=== PATIENT | female | born 1950 | race Caucasian/White ===

== ENCOUNTER 2017-12-11 09:35 | Outpatient (CLI) | payer MEDICARE, OTHER ==
--- NOTE | 2017-12-12 17:20 | Mammography Report ---
DIGITAL SCREENING MAMMOGRAM: 12/11/2017 CLINICAL INDICATION: A 67-year-old for screening. COMPARISON: 09/2015, 12/2013, 09/2012, 09/2010. TECHNIQUE: Routine CC and MLO projections were obtained of the breasts. FINDINGS: Scattered fibroglandular tissue is present within the breasts. There are no dominant masses, suspicious microcalcifications, or secondary signs of malignancy. In comparison to the previous studies, there are no significant changes. ASSESSMENT: NO MAMMOGRAPHIC EVIDENCE OF MALIGNANCY. NO SIGNIFICANT INTERVAL CHANGES. RECOMMENDATION: Screening mammography is recommended annually. BIRADS category 1 - negative. STANDARD QUALIFYING STATEMENTS: 1. This examination was reviewed with the aid of Computed-Aided Detection (CAD). 2. A negative or benign imaging report should not delay biopsy if clinically suspicious findings are present. Consider surgical consultation if warranted. More than 5% of cancers are not identified by imaging. 3. Dense breasts may obscure an underlying neoplasm. TD: 12/12/2017 15:34
== END 2017-12-11 09:36 | disposition home or self-care (01) ==
LOC: DI 09:35
PROVIDERS: ATTEND Family Medicine
DX: Z12.31 Encounter for screening mammogram for malignant neoplasm of breast (principal)
CPT/HCPCS: 77067

== ENCOUNTER 2018-04-25 14:19 | Outpatient (CLI) | payer MEDICARE, OTHER | END 2018-04-25 14:20 | disposition home or self-care (01) | LOC: RT 14:19 | PROVIDERS: ATTEND Family Medicine | DX: R07.9 Chest pain, unspecified (principal) | CPT/HCPCS: 93005 ==

== ENCOUNTER 2019-06-30 07:48 | Outpatient (CLI) | payer MEDICARE, OTHER ==
[2019-06-30] MEDS ORDERED: IOVERSOL 320 50 ML VIAL ONE (07:53)
[2019-06-30] MEDS ORDERED: IOVERSOL 320 100 ML VIAL IVP ONE ×2 (07:53→13:00)
[2019-06-30] MEDS ORDERED: IOVERSOL 320 50 ML VIAL PO ONE (13:00)
--- NOTE | 2019-07-01 09:07 | CT Report ---
Reason: UNSPECIFIED ABDOMINAL PAIN Procedure Date: 06/30/2019 Accession Number: [id number] / [id number] Procedure: CT - Abdomen/Pelvis W CPT Code: Final Report FULL RESULT: EXAM: CT ABDOMEN AND PELVIS EXAM DATE: 06/30/2019 09:33 AM. CLINICAL HISTORY: Progressive abdominal pain COMPARISONS: None. TECHNIQUE: Routine helical CT imaging was performed through the abdomen and pelvis. IV contrast: OPTI 320 100ML. Enteric contrast: No. Reconstructions: Coronal and sagittal. In accordance with CT protocol optimization, one or more of the following dose reduction techniques were utilized for this exam: automated exposure control, adjustment of mA and/or KV based on patient size, or use of iterative reconstructive technique. FINDINGS: Lung Bases: Unremarkable. Liver: Hepatic few scattered hypoattenuating lesions, the largest in the left lobe measuring 1.1 cm are too small to definitively characterize, possibly small cysts or hemangiomas. No enhancing liver masses. Hepatic and portal veins are patent. Gallbladder/Bile Ducts: Unremarkable. Spleen: Normal. Pancreas: Normal. Adrenal Glands: Normal. Kidneys: No solid renal masses or hydronephrosis. Exophytic 2 cm left upper pole renal lesion is most consistent with a simple cyst. Few additional small sub-centimeter hypoattenuating renal lesions are too small to characterize, possibly additional cysts. Peritoneal Cavity/Bowel: Unremarkable stomach. Normal caliber small bowel loops without signs of wall thickening or hyperemia. No pathologically enlarged intraperitoneal or retroperitoneal lymph nodes. Colonic diverticula without inflammation. Normal appendix. No pneumoperitoneum or ascites. No fluid collections. Pelvic Organs: A large heterogeneously enhancing mass is centered in the right upper pelvic sidewall measuring approximately 10.1 x 10.2 cm. A distinct separate right ovary is not seen. Left ovary appears unremarkable. Given location, and ovarian primary malignancy is a consideration. Otherwise, a pelvic sarcoma is another possible differential consideration. This lesion abuts a loop of small bowel in the right lower abdomen. No enlarged pelvic or inguinal lymph nodes are seen. No pelvic ascites. Mass-effect is noted on the urinary bladder. The uterus is surgically absent. Vasculature: No aneurysms or other significant abnormality. Bones: Osteopenia. Age-indeterminate superior endplate compression deformity seen in L1. No acute fracture lines. No focal suspicious osseous lesions. Other: None. IMPRESSION: 1. Large heterogeneous enhancing right pelvic sidewall mass measuring up to 10.2 cm is suspicious for malignancy. Given location, ovarian neoplasm is a primary consideration. A pelvic soft tissue sarcoma is an additional consideration. 2. Few indeterminate hypoattenuating liver lesions are too small to characterize, possibly benign cysts or hemangiomas. Liver MRI could be obtained for additional lesion characterization as indicated. 3. Otherwise, no evidence for metastatic disease in the abdomen or pelvis. No lymphadenopathy. 4. Colonic diverticulosis, notable in the sigmoid colon, without evidence for acute diverticulitis. RADIA
== END 2019-06-30 07:49 | disposition home or self-care (01) ==
LOC: DI 07:48
PROVIDERS: ATTEND Nurse Practitioner Family
DX: R19.09 Other intra-abdominal and pelvic swelling, mass and lump (principal); K76.9 Liver disease, unspecified; K57.30 Diverticulosis of large intestine without perforation or abscess without bleeding
CPT/HCPCS: 74177; Q9967

== ENCOUNTER 2019-07-31 12:40 | Outpatient (CLI) | payer MEDICARE, OTHER ==
--- NOTE | 2019-07-31 14:38 | Mammography Report ---
Reason: MASTODYNIA Procedure Date: 07/31/2019 Accession Number: [id number] / [id number] Procedure: TAHIRA - Diagnostic Dig Bilat CPT Code: Final Report FULL RESULT: EXAM: Diagnostic Dig Bilat DATE: 07/31/2019 1:36 PM CLINICAL HISTORY: Diagnostic examination. Mastodynia. 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 TECHNIQUE: (B) - Bilateral CC and MLO views were obtained. Right laterally exaggerated CC views obtained. COMPARISON: 12/11/2017 through 10/10/2010. PARENCHYMAL PATTERN: (A) - The breast(s) demonstrate(s) scattered fibroglandular densities. FINDINGS: There has been interval increase in size of previously seen well circumscribed isodense nodules bilaterally. In the right breast 10.5 cm from the nipple 9:00 position, up to 1 cm size as well as in the left breast laterally, 3:00 position 8.8 cm from the nipple, isodense gently lobulated and up to 0.9 cm in size. Focused left breast ultrasound is performed which demonstrates a gently lobulated well demarcated wider than tall hypoechoic nodule which measures 0.7 x 0.3 x 0.6 cm which corresponds in size and location to the mammographic finding. Focused right breast ultrasound demonstrates a gently lobulated 0.6 x 0.2 x 0.7 cm hypoechoic nodule with well demarcated borders which is wider than tall at the 9:00 position 10 cm from the nipple which corresponds in size and appearance and location to the mammographic findings. Both nodules are probably benign. There are no suspicious masses, calcifications, or areas of distortion. IMPRESSION: Probably Benign. BI-RADS category 3. RECOMMENDATION: (6MOS) - Recommend 6 month follow-up exam. Bilateral focused breast ultrasound. BI-RADS CATEGORY: (3) - Probably Benign. STANDARD QUALIFYING STATEMENTS: 1. This examination was not reviewed with the aid of Computer-Aided Detection (CAD). 2. A negative or benign imaging report should not preclude biopsy if clinically suspicious findings are present. 3. Dense breasts may obscure an underlying neoplasm. 4. This examination was reviewed with the aid of 3D breast imaging (tomosynthesis).
== END 2019-07-31 12:41 | disposition home or self-care (01) ==
LOC: DI 12:40
PROVIDERS: ATTEND Nurse Practitioner Family
DX: N64.4 Mastodynia (principal)
CPT/HCPCS: 76642; 77066

== ENCOUNTER 2020-01-06 09:26 | Outpatient (CLI) | payer MEDICARE, OTHER | END 2020-01-06 23:59 | disposition home or self-care (01) | LOC: LAB 09:26 | PROVIDERS: ATTEND Internal Medicine | DX: R03.0 Elevated blood-pressure reading, without diagnosis of hypertension (principal) | CPT/HCPCS: 36415; 82565 ==

== ENCOUNTER 2020-01-07 10:44 | Outpatient (CLI) | payer MEDICARE, OTHER ==
[2020-01-06 10:12] LABS: CREATININE 0.6 mg/dL (0.4-1.0)
[2020-01-07] MEDS ORDERED: IOVERSOL 320 100 ML VIAL IVP ONE ×2 (10:54→13:19)
[2020-01-07] MEDS ORDERED: IOVERSOL 320 50 ML VIAL ONE (10:54)
[2020-01-07] MEDS ORDERED: IOVERSOL 320 50 ML VIAL PO ONE (13:19)
--- NOTE | 2020-01-07 13:59 | CT Report ---
PROCEDURE: Abdomen/Pelvis W INDICATIONS: MALIGNANT NEOPLASM OF UNSPECIFIED OVARY CONTRAST: IV CONTRAST: Optiray 320 ml: 100 PO CONTRAST: Optiray 320 ml50 TECHNIQUE: After the administration of oral and intravenous contrast, 5 mm thick sections acquired from the diap hragms to the symphysis. 5 mm thick coronal and sagittal reformats were acquired. For radiation dos e reduction, the following was used: automated exposure control, adjustment of mA and/or kV accordin g to patient size. COMPARISON: None. FINDINGS: Image quality: Excellent. ABDOMEN: Lung bases: Lung bases are clear. Heart size is normal. Solid organs: Liver and spleen are normal in size and enhancement. A 1.5 cm hepatic cyst is present within the inferior left hepatic lobe, unchanged from the study dated 06/30/2019. Gallbladder is unr emarkable Biliary system is non dilated. Pancreas enhances normally. No adrenal nodules. Kidneys demonstrate normal size and enhancement, without hydronephrosis. Peritoneum and bowel: Bowel loops demonstrate normal wall thickness and caliber. The appendix is th in-walled and gas-filled. There are extensive colonic diverticular outpouchings. No mucosal thickenin g or pericolonic fat stranding to suggest acute diverticulitis. There is trace low-density free pelvi c fluid. Nodes and vessels: No retroperitoneal or mesenteric adenopathy by size criteria. Aorta and inferior vena cava are normal in size. Scattered atheromatous calcifications are present throughout the abdo isaac aorta. Miscellaneous: No ventral hernias. PELVIS: Genitourinary: Bladder wall thickness is normal. Uterus is likely surgically absent. The large hete rogeneously enhancing mass within the right hemipelvis visualized on the comparison CT dated 06/30/20 19 is no longer present. No findings to suggest tumor recurrence. Miscellaneous: No inguinal hernias or adenopathy. Bones: No suspicious bony lesions. No new vertebral body compression fractures. IMPRESSION: 1. Status post surgical excision of the heterogeneously enhancing right pelvic mass. No findings to s uggest tumor recurrence or new metastasis. 2. No acute intra-abdominal findings. Normal appendix. 3. Aortic atherosclerosis. 4. Diverticulosis. No acute diverticulitis. Reviewed by: Elyssa Hendrix MD on 01/07/2020 1:57 PM PDT Approved by: Elyssa Hendrix MD on 01/07/2020 1:57 PM PDT Station ID: [id number]
--- NOTE | 2020-01-07 14:03 | CT Report ---
PROCEDURE: CHEST W INDICATIONS: MALIGNANT NEOPLASM OF UNSPECIFIED OVARY CONTRAST: IV CONTRAST: Optiray 320 ml: 100 PO CONTRAST: Optiray 320 ml50 TECHNIQUE: After the administration of intravenous contrast, 5 mm thick sections acquired from the pulmonary api chyna to the posterior costophrenic angles. 7 mm thick coronal MIP reformats were acquired. For radia tion dose reduction, the following was used: automated exposure control, adjustment of mA and/or kV according to patient size. COMPARISON: None. FINDINGS: Image quality: Excellent. Lungs and pleura: No acute air space opacities. No pleural effusions or pneumothorax. Central and peripheral airways are patent and normal in caliber. Mediastinum: Heart size is normal. No pericardial effusion. No mediastinal or hilar adenopathy by size criteria. Thoracic aorta and central pulmonary arteries are normal in size. Trace atheromatous calcifications are present at the thoracic aortic arch. Esophagus is normal in caliber. No hiatal he rnia. Bones and chest wall: No suspicious bony lesions. No vertebral body compression fractures. No axil isadora or supraclavicular adenopathy by size criteria. 2 subcentimeter low-density thyroid nodules are present within the right thyroid lobe. The left thyroid lobe is unremarkable. Abdomen: Visualized upper abdominal solid organs appear normal. Upper abdominal bowel loops are nor mal in caliber. IMPRESSION: 1. No acute cardiopulmonary findings. 2. No findings to suggest thoracic metastasis. 3. Subcentimeter low-density thyroid nodules. If further characterization is warranted, nonemergent t hyroid ultrasound could be used. Reviewed by: Elyssa Hendrix MD on 01/07/2020 2:01 PM PDT Approved by: Elyssa Hendrix MD on 01/07/2020 2:01 PM PDT Station ID: [id number]
== END 2020-01-07 10:45 | disposition home or self-care (01) ==
LOC: DI 10:44
PROVIDERS: ATTEND Internal Medicine
DX: Z08 Encounter for follow-up examination after completed treatment for malignant neoplasm (principal); Z85.43 Personal history of malignant neoplasm of ovary
CPT/HCPCS: 71260; 74177; Q9967; 36415; 82565

== ENCOUNTER 2020-04-01 12:46 | Outpatient (CLI) | payer MEDICARE, OTHER ==
--- NOTE | 2020-04-07 13:41 | Ultrasound Report ---
LIMITED ULTRASOUND OF LEFT BREAST: 04/01/2020 CLINICAL: Patient returns for a 6 month follow up of the left breast. Comparison is made to exams dated: 07/31/2019 ultrasound and 07/31/2019 mammogram - [facility]. Color flow ultrasound of the left breast 3 o'clock region was performed. Finch scale images of the r eal-time examination were reviewed. There is a 0.5 cm x 0.4 cm x 0.6 cm oval mass in the left breast at 4 o'clock anterior depth 6 cm fro m the nipple. This oval mass is hypoechoic with internal echoes. This abnormality is decreased in s ize. Color flow imaging demonstrates that there is no vascularity present. IMPRESSION: PROBABLY BENIGN The 0.6 cm oval mass in the left breast has a differential diagnosis of a complicated cyst or a fibro adenoma and is probably benign. A follow-up left ultrasound in 6 months is recommended to demonstrate stability. Future imaging is r ecommended as follows: 09/28/2020 screening mammogram. Findings and recommendations were conveyed to the patient at time of exam. This exam was interpreted at Station ID: [id number]. Electronically Signed By: Jocelynn wallace/:04/01/2020 14:12:22 Ultrasound BI-RADS: 3 Probably benign BI-RADS CATEGORY: (3) - 3 Ultrasound [id number] 6 month follow-up LATERALITY: (L)
--- NOTE | 2020-04-07 13:41 | Ultrasound Report ---
LIMITED ULTRASOUND OF RIGHT BREAST: 04/01/2020 CLINICAL: Patient returns for a 6 month follow up of the right breast. Comparison is made to exams dated: 07/31/2019 ultrasound and 07/31/2019 mammogram - [facility]. Color flow ultrasound of the right breast 10 o'clock region was performed. Finch scale images of the real-time examination were reviewed. There is a benign 0.4 cm x 0.2 cm x 0.4 cm cyst in the right breast at 9 o'clock posterior depth 9 cm from the nipple. This cyst is anechoic. This abnormality is decreased in size and internal echotex ture. Color flow imaging demonstrates that there is no vascularity present. IMPRESSION: BENIGN There is no sonographic evidence of malignancy. The 0.4 cm x 0.2 cm x 0.4 cm cyst in the right breast is benign. Return to annual mammogram screening schedule is recommended. Findings and recommendations were conveyed to the patient at time of exam. This exam was interpreted at Station ID: [id number]. Electronically Signed By: Jocelynn wallace/:04/01/2020 14:08:43 Ultrasound BI-RADS: 2 Benign BI-RADS CATEGORY: (2) - 2 RECOMMENDATION: (ANNUAL) - Recommend routine annual screening mammography. [id number] return to screening LATERALITY: (B)
== END 2020-04-01 12:47 | disposition home or self-care (01) ==
LOC: DI 12:46
PROVIDERS: ATTEND Internal Medicine
DX: R92.8 Other abnormal and inconclusive findings on diagnostic imaging of breast (principal); N60.01 Solitary cyst of right breast
CPT/HCPCS: 76642

== ENCOUNTER 2020-04-06 07:04 | Day surgery (SDC) | payer MEDICARE, OTHER ==
[2020-04-06] MEDS ORDERED: LACTATED RINGERS 1,000 ML IV ONE ×2 (07:34→09:44)
[2020-04-06] MEDS ORDERED: MIDAZOLAM 2 MG/2 ML VIAL IVP ONE (08:59)
[2020-04-06] MEDS ORDERED: ONDANSETRON 4 MG/2 ML VIAL IVP ONE (08:59)
[2020-04-06] MEDS ORDERED: fentaNYL 250 MCG/5 ML VIAL IVP ONE (08:59)
[2020-04-06 10:03] VITALS: BP 127/67
== END 2020-04-06 07:05 | disposition home or self-care (01) ==
LOC: SDS 07:04
PROVIDERS: ATTEND Surgery
PROC: 0DBK8ZZ Excision of Ascending Colon, Via Natural or Artificial Opening Endoscopic (ICD-10-PCS; principal; 2020-04-06 08:15)
DX: Z12.11 Encounter for screening for malignant neoplasm of colon (principal); D12.2 Benign neoplasm of ascending colon; K62.1 Rectal polyp; K62.89 Other specified diseases of anus and rectum; K57.30 Diverticulosis of large intestine without perforation or abscess without bleeding; E78.5 Hyperlipidemia, unspecified; Z87.11 Personal history of peptic ulcer disease; Z87.891 Personal history of nicotine dependence
CPT/HCPCS: 45380; J3010; J7120

== ENCOUNTER 2020-10-08 13:06 | Outpatient (CLI) | payer MEDICARE, OTHER ==
--- NOTE | 2020-10-08 13:52 | XRAY Report ---
PROCEDURE: Lumbar Spine Complete INDICATIONS: LUMBAR RADICULOPATHY TECHNIQUE: 5 views of the lumbar spine were acquired, including bilateral oblique views. COMPARISON: Correlation is made with prior abdomen pelvis CT, 01/07/2020 FINDINGS: Bones: 5 [id number] vertebrae are present. There is a chronic appearing anterior wedge deformi ty of L1, with 20-30% loss of height anteriorly. No acute appearing vertebral body compression fractu res. No suspicious bony lesions. There is minimal dextroconvex sclerotic curvature seen. Mild grade 1 anterolisthesis is seen at the L 4-L5 level. There is moderate to severe disc space narrowing at L4-L5, with relatively well preserved disc spaces elsewhere. Facet arthropathy is seen, which is most prominent inferiorly. Soft tissues: Overlying bowel gas pattern is normal. No suspicious soft tissue calcifications. Pos toperative clips can be seen on the lateral images. IMPRESSION: Focal L4-L5 degenerative change. Remote L1 anterior wedge deformity. Reviewed by: Noman Hill MD on 10/08/2020 12:50 PM WILLIAM Approved by: Noman Hill MD on 10/08/2020 12:50 PM WILLIAM Station ID: [id number]
--- NOTE | 2020-10-08 13:54 | Ultrasound Report ---
PROCEDURE: Ext Limited Non Vascular INDICATIONS: PAIN IN LT KNEE POSS BAKERS CYST TECHNIQUE: Real-time scanning was performed of the left knee, with image documentation. COMPARISON: None. FINDINGS: Scanning was performed within the left popliteal fossa. No fluid collections can be seen. Scanning was performed at the areas of clinical concern. Along the lateral aspect of the knee, there is a fluid collection seen that measures 16 x 10 x 10 mm. An additional fluid collection can be seen anteriorly measuring 2.3 x 0.4 x 1.3 cm. No abnormal vascularity can be seen of the spinal collection s. IMPRESSION: 2 fluid collections are seen involving the left knee, yet without a Casas's cyst identified. Reviewed by: Noman Hill MD on 10/08/2020 12:53 PM WILLIAM Approved by: Noman Hill MD on 10/08/2020 12:53 PM WILLIAM Station ID: [id number]
== END 2020-10-08 13:07 | disposition home or self-care (01) ==
LOC: DI 13:06
PROVIDERS: ATTEND Family Medicine
DX: M47.26 Other spondylosis with radiculopathy, lumbar region (principal); M25.562 Pain in left knee; M25.462 Effusion, left knee

== ENCOUNTER 2020-11-24 08:33 | Outpatient (CLI) | payer MEDICARE, OTHER ==
--- NOTE | 2020-11-24 15:07 | DEXA Report ---
PROCEDURE: Dexa Spine and/or Hip INDICATIONS: DISORDER OF THE BONE TECHNIQUE: Dual energy x-ray absorptiometry (DXA) was performed on a NUVETA System. Regions measur ed are the AP Spine, femoral neck, and if needed forearm. COMPARISON: None. FINDINGS: Lumbar Spine: Bone Mineral Density 1.020 g/cm/cm,T score -1.3, minimal osteopenia Left Hip: Bone Mineral Density 0.895 g/cm/cm,T score -0.9, normal Left Femoral Neck: Bone Mineral Density 0.919 g/cm/cm, T score -0.9, normal (T score greater or equal to -1.0: NORMAL) (T score from -1.1 to -2.4: OSTEOPENIA) (T score less than or equal to -2.5 to: OSTEOPOROSIS) Impression: Normal bone mineral density. Patients with diagnosis of osteoporosis or osteopenia should have regular bone mineral density assess ment. For those eligible for Medicare, routine testing is allowed once every 2 years. Testing frequ ency can be increased for patients who have rapidly progressing disease or for those who are receivin g medical therapy to restore bone mass. Reviewed by: Eli Seymour MD on 11/24/2020 3:06 PM PDT Approved by: Eli Seymour MD on 11/24/2020 3:06 PM PDT Station ID: [id number]
== END 2020-11-24 08:34 | disposition home or self-care (01) ==
LOC: DI 08:33
PROVIDERS: ATTEND Internal Medicine
DX: M85.88 Other specified disorders of bone density and structure, other site (principal)

== ENCOUNTER 2021-04-03 10:34 | Outpatient (CLI) | payer MEDICARE, OTHER ==
[2021-04-03 11:00] LABS: BASOPHILS % (AUTO) 0.8 %; EOSINOPHILS # (AUTO) 0.2 10^3/uL (0.0-0.7); EOSINOPHILS % (AUTO) 3.2 %; HCT - HEMATOCRIT 41.9 % (37.0-47.0); LYMPHOCYTES # (AUTO) 1.4 10^3/uL (1.5-3.5); LYMPHOCYTES % (AUTO) 28.2 %; MEAN CORPUSCULAR HGB CONC 33.4 g/dL (32.0-36.0); MEAN CORPUSCULAR VOLUME 89.9 fL (81.0-99.0); MEAN PLATELET VOLUME 10.5 fL (7.9-10.8); MONOCYTES # (AUTO) 0.3 10^3/uL (0.0-1.0); MONOCYTES % (AUTO) 6.2 %; NEUTROPHILS # (AUTO) 3.1 10^3/uL (1.5-6.6); NEUTROPHILS % (AUTO) 61.2 %; PLT - PLATELET COUNT 223 10^3/uL (130-450); RED BLOOD COUNT 4.66 10^6/uL (4.20-5.40); RED CELL DISTRIBUTION WIDTH 12.7 % (12.0-15.0)
[2021-04-03 11:26] LABS: % IRON SATURATION 20 % (20-50); ALBUMIN 4.4 g/dL (3.2-5.5); ALBUMIN/GLOBULIN RATIO 1.6 (1.0-2.2); ALKALINE PHOSPHATASE 64 IU/L (42-121); ALT ALANINE AMINOTRANSFERASE 17 IU/L (10-60); AST ASPARTATE AMINOTRANSFERASE 18 IU/L (10-42); BILIRUBIN,TOTAL 0.7 mg/dL (0.2-1.0); BUN - BLOOD UREA NITROGEN 15 mg/dL (6-20); CALCIUM 9.1 mg/dL (8.5-10.3); CARBON DIOXIDE - CO2 25 mmol/L (21-32); CHLORIDE 103 mmol/L (101-111); CHOL/HDL RATIO 5.2 (<4.4); CHOLESTEROL 249 mg/dL; CREATININE 0.6 mg/dL (0.4-1.0); GFR - MDRD 99 (>89); GLUCOSE 96 mg/dL (70-100); HDL CHOLESTEROL 48 mg/dL; IRON 83 ug/dL (28-170); LDL CHOLESTEROL,CALCULATED 184 mg/dL; LDL/HDL RATIO 3.8 (<4.4); POTASSIUM 3.9 mmol/L (3.5-5.0); SODIUM 137 mmol/L (135-145); TOTAL IRON BINDING CAPACITY 410 ug/dL (250-450); TOTAL PROTEIN 7.2 g/dL (6.7-8.2); TRANSFERRIN 293 mg/dL (192-382); TRIGLYCERIDES 83 mg/dL; VLDL CHOLESTEROL 17 mg/dL
[2021-04-03 11:42] LABS: FERRITIN 37.9 ng/mL (11.0-306.8)
[2021-04-03 11:46] LABS: FOLATE 10.41 ng/mL ({null, 5.90 - >24.8})
== END 2021-04-03 10:35 | disposition home or self-care (01) ==
LOC: LAB 10:34
PROVIDERS: ATTEND Physician Assistant
DX: C56.9 Malignant neoplasm of unspecified ovary (principal); E78.5 Hyperlipidemia, unspecified; D64.9 Anemia, unspecified
CPT/HCPCS: 36415; 80053; 80061; 81599; 82378; 82607; 82728; 82746; 83540; 83721; 84466; 85025; 86304; 86305

== ENCOUNTER 2021-04-07 12:58 | Outpatient (CLI) | payer MEDICARE, OTHER | END 2021-04-07 12:59 | disposition home or self-care (01) | LOC: LAB 12:58 | PROVIDERS: ATTEND Physician Assistant Medical | DX: C56.9 Malignant neoplasm of unspecified ovary (principal) | CPT/HCPCS: 36415; 81599; 82378; 86304; 86305 ==

== ENCOUNTER 2021-04-14 13:03 | Outpatient (CLI) | payer MEDICARE, OTHER ==
--- NOTE | 2021-04-24 11:40 | Mammography Report ---
BILATERAL DIGITAL SCREENING MAMMOGRAM 3D/2D: 04/14/2021 CLINICAL: Routine screening. Comparison is made to exams dated: 04/01/2020 ultrasound, 04/01/2020 ultrasound, 07/31/2019 ultrasound, 07/31/2019 mammogram, 12/11/2017 mammogram, and 04/14/2021 ultrasound - [facility]. M ammogram There are scattered fibroglandular elements in both breasts. There is a benign cyst in the right breast which is stable. Additionally, there are benign calcifica tions in the right breast. There also is a mass in the left breast 3:00 posterior depth which is les s conspicuous. No significant masses, calcifications, or other findings are seen in either breast. There has been no significant interval change. IMPRESSION: BENIGN Left breast mass is less conspicuous. This resembles a fibroadenoma or cyst. Please see same day left breast US for final BI-RADS assessment. Bilateral mammogram is recommended in 12 months. This exam was interpreted at Station ID: [id number]. NOTE: For mammograms, a report in lay terms will be sent to the patient. Approximately 15% of breast malignancies will not be visualized mammographically. In the management of a palpable breast mass, a negative mammogram must not discourage biopsy of a clinically suspicious lesion. Electronically Signed By: Chaparro Campos M.D. slc/:04/24/2021 10:57:31 ACR BI-RADS Category 2: Benign Finding(s) 3342F PARENCHYMAL PATTERN: (A) - The breast(s) demonstrate(s) scattered fibroglandular densities. BI-RADS CATEGORY: (2) - 2 RECOMMENDATION: (ANNUAL) - Recommend routine annual screening mammography. [id number] 1 year screening LATERALITY: (B)
== END 2021-04-14 13:04 | disposition home or self-care (01) ==
LOC: DI 13:03
DX: Z12.31 Encounter for screening mammogram for malignant neoplasm of breast (principal); N63.25 Unspecified lump in the left breast, overlapping quadrants

== ENCOUNTER 2021-04-14 13:14 | Outpatient (CLI) | payer MEDICARE, OTHER ==
--- NOTE | 2021-04-24 11:40 | Ultrasound Report ---
LIMITED ULTRASOUND OF LEFT BREAST AND AXILLA: 04/14/2021 CLINICAL: Patient returns for short term follow-up of a probably benign mass in the left breast. Comparison is made to exams dated: 04/14/2021 mammogram, 04/01/2020 ultrasound, 04/01/2020 ultrasound, 07/31/2019 ultrasound, 07/31/2019 mammogram, and 12/11/2017 mammogram - [facility] with [facility]. Color flow and real-time ultrasound of the left breast 3-4 o'clock, and axilla regions were performe d. Finch scale images of the real-time examination were reviewed. There is a 0.5 cm x 0.3 cm x 0.4 cm oval mass in the left breast at 3 o'clock anterior depth 6 cm fro m the nipple. This oval mass is hypoechoic with internal echoes. This abnormality is not significan tly changed. Color flow imaging demonstrates that there is no vascularity present. IMPRESSION: PROBABLY BENIGN The 0.5 cm x 0.3 cm x 0.4 cm oval mass in the left breast has a differential diagnosis of a complicat ed cyst or a fibroadenoma and is probably benign. A follow-up bilateral mammogram and a left ultrasound in 12 months is recommended to document long te rm stability. Findings and recommendations were conveyed to the patient during today's evaluation. This exam was interpreted at Station ID: [id number]. Electronically Signed By: Minesh Lovett M.D. aty/:04/14/2021 16:37:28 Ultrasound BI-RADS: 3 Probably benign BI-RADS CATEGORY: (3) - 3 Mammo and US [id number] 12 month follow-up LATERALITY: (B)
== END 2021-04-14 13:15 | disposition home or self-care (01) ==
LOC: DI 13:14
PROVIDERS: ATTEND Physician Assistant
DX: N63.25 Unspecified lump in the left breast, overlapping quadrants (principal)

== ENCOUNTER 2021-06-19 08:09 | Outpatient (CLI) | payer MEDICARE, OTHER ==
--- NOTE | 2021-06-19 08:45 | Ultrasound Report ---
PROCEDURE: Abdomen Limited INDICATIONS: RLQ PAIN TECHNIQUE: Real-time focused scanning was performed of the abdomen, with image documentation. COMPARISON: Reference is made to the CT abdomen dated January 07, 2020 FINDINGS: Bowel and fat fat-containing hernia is identified in the area of clinical concern, right o f the midline incision. The fascial defect measures approximately 2.5 cm. IMPRESSION: 1. Right ventral hernia as detailed above, which may be secondary to prior incision. Reviewed by: Brant Simmons MD on 06/19/2021 8:44 AM PST Approved by: Brant Simmons MD on 06/19/2021 8:44 AM PST Station ID: [id number]
== END 2021-06-19 08:10 | disposition home or self-care (01) ==
LOC: DI 08:09
PROVIDERS: ATTEND Physician Assistant
DX: K43.9 Ventral hernia without obstruction or gangrene (principal); C56.9 Malignant neoplasm of unspecified ovary; Z79.899 Other long term (current) drug therapy
CPT/HCPCS: 36415; 81599; 82378; 86304

== ENCOUNTER 2021-06-19 08:23 | Outpatient (CLI) | payer MEDICARE, OTHER | END 2021-06-19 08:24 | disposition home or self-care (01) | LOC: LAB 08:23 | PROVIDERS: ATTEND Physician Assistant Medical | DX: C56.9 Malignant neoplasm of unspecified ovary (principal); Z79.899 Other long term (current) drug therapy | CPT/HCPCS: 36415; 81599; 82378; 86304 ==

== ENCOUNTER 2021-08-30 10:57 | Outpatient (CLI) | payer MEDICARE, OTHER ==
--- NOTE | 2021-08-30 15:00 | XRAY Report ---
PROCEDURE: Knee 3 View LT INDICATIONS: PAIN IN LT KNEE TECHNIQUE: 3 views of the left knee were acquired. COMPARISON: None. FINDINGS: Bones: No fractures or dislocations. There is minimal joint space narrowing in the medial compartmen t. Mild tricompartmental osteophytosis is present. There is slight lateral shift of the patella with mild narrowing in the patellofemoral compartment laterally. No suspicious bony lesions. Soft tissues: There is a small joint effusion. No suspicious soft tissue calcifications. IMPRESSION: 1. Mild osteoarthritic changes including mild narrowing in the medial compartment and the patellofemo ral compartment laterally. 2. Small joint effusion. Reviewed by: Alex Vazquez MD on 08/30/2021 2:58 PM PST Approved by: Alex Vazquez MD on 08/30/2021 2:58 PM PST Station ID: [id number]
== END 2021-08-30 10:58 | disposition home or self-care (01) ==
LOC: DI.S 10:57
PROVIDERS: ATTEND Nurse Practitioner Family
DX: M17.12 Unilateral primary osteoarthritis, left knee (principal); M25.462 Effusion, left knee

== ENCOUNTER 2021-09-18 10:47 | Outpatient (CLI) | payer MEDICARE, OTHER | END 2021-09-18 10:48 | disposition home or self-care (01) | LOC: LAB.S 10:47 | PROVIDERS: ATTEND Nurse Practitioner Women's Health | DX: C56.9 Malignant neoplasm of unspecified ovary (principal) | CPT/HCPCS: 36415; 81599; 82378; 86304; 86305 ==

== ENCOUNTER 2022-06-20 10:41 | Outpatient (CLI) | payer MEDICARE, OTHER ==
--- NOTE | 2022-06-21 10:01 | Mammography Report ---
BILATERAL DIGITAL DIAGNOSTIC MAMMOGRAM 3D/2D: 06/20/2022 CLINICAL: 12 month follow up of left breast mass. Due for bilateral. Comparison is made to exams dated: 04/14/2021 mammogram, 07/31/2019 mammogram, 12/11/2017 mammogram, an d 04/14/2021 ultrasound - [facility]. There are scattered areas of fibroglandular density in both breasts (category b / 25%-50% glandular t issue). There is a focal asymmetry in the left breast at 3 o'clock middle depth. This is less prominent. No other significant masses, calcifications, or other findings are seen in either breast. IMPRESSION: INCOMPLETE: NEEDS ADDITIONAL IMAGING EVALUATION The focal asymmetry in the left breast is indeterminate. A targeted ultrasound is recommended and will immediately follow. Based on the Tyrer Cuzick model (a risk assessment model) the patients lifetime risk is 6.2% and her 10 year risk is 4.3%. According to the ACR, ACS, and NCCN guidelines, an annual breast MRI exam cecile g with mammogram is recommended if the patients lifetime risk is 20% or greater. This exam was interpreted at Station ID: [id number]. NOTE: For mammograms, a report in lay terms will be sent to the patient. Approximately 15% of breast malignancies will not be visualized mammographically. In the management of a palpable breast mass, a negative mammogram must not discourage biopsy of a clinically suspicious lesion. Electronically Signed By: Chaparro Campos M.D. slc/:06/20/2022 11:35:40 ACR BI-RADS Category 0: Incomplete 3340F PARENCHYMAL PATTERN: (A) - The breast(s) demonstrate(s) scattered fibroglandular densities. BI-RADS CATEGORY: (0) - 0 Ultrasound [id number] Immediate follow-up LATERALITY: (B)
--- NOTE | 2022-06-21 10:01 | Ultrasound Report ---
LIMITED ULTRASOUND OF LEFT BREAST: 06/20/2022 CLINICAL: Short term follow up for the left breast. Comparison is made to exams dated: 06/20/2022 mammogram, 04/14/2021 ultrasound, 04/14/2021 mammogram, ultrasound, 04/01/2020 ultrasound, and 07/31/2019 ultrasound - formerly [facility]. Color flow and real-time ultrasound of the left breast 3 o'clock region were performed. Finch scale i mages of the real-time examination were reviewed. There is a 0.4 cm x 0.3 cm x 0.3 cm mass in the left breast at 3 o'clock middle depth 6 cm from the n ipple. This mass is hypoechoic. This abnormality is not significantly changed. Color flow imaging demonstrates that there is no vascularity present. IMPRESSION: BENIGN There is no sonographic evidence of malignancy. The 0.4 cm mass in the left breast resembles a lymph node and is benign. This is slightly decreased c ompared to March 2020. A 1 year screening mammogram is recommended. This exam was interpreted at Station ID: [id number]. Electronically Signed By: Chaparro Campos M.D. slc/:06/20/2022 12:38:06 Ultrasound BI-RADS: 2 Benign BI-RADS CATEGORY: (2) - 2 RECOMMENDATION: (ANNUAL) - Recommend routine annual screening mammography. [id number] 1 year screening LATERALITY: (B)
== END 2022-06-20 10:42 | disposition home or self-care (01) ==
LOC: DI 10:41
PROVIDERS: ATTEND Physician Assistant
DX: N63.25 Unspecified lump in the left breast, overlapping quadrants (principal)

== ENCOUNTER 2022-07-19 11:01 | Outpatient (CLI) | payer MEDICARE, OTHER ==
--- NOTE | 2022-07-19 12:31 | XRAY Report ---
PROCEDURE: Lumbar Spine Complete INDICATIONS: LESION OF SCIATIC Nerve, left TECHNIQUE: 5 views of the lumbar spine were acquired. COMPARISON: Lumbar spine radiographs 10/08/2020. CT abdomen pelvis 01/07/2020. FINDINGS: Bones: 5 [id number] vertebrae are present. Anterolisthesis of L4 on L5 measuring 0.6 cm, simila r to 10/08/2020. Loss of disc space height at L4-L5. Lower lumbar spine facet joint upper tree. Mild c ompression fracture at L1, unchanged since 2019. No suspicious bony lesions. Soft tissues: Overlying bowel gas pattern is normal. No suspicious soft tissue calcifications. IMPRESSION: No interval change seen. Anterolisthesis of L4 on L5 measuring 0.6 cm is similar to 2020. L1 compression fracture similar to 2020. Reviewed by: Chaparro Campos MD on 07/19/2022 12:29 PM PST Approved by: Chaparro Campos MD on 07/19/2022 12:29 PM PST Station ID: [id number]
== END 2022-07-19 11:02 | disposition home or self-care (01) ==
LOC: DI 11:01
PROVIDERS: ATTEND Family Medicine
DX: M43.16 Spondylolisthesis, lumbar region (principal); M47.816 Spondylosis without myelopathy or radiculopathy, lumbar region; M48.56XD Collapsed vertebra, not elsewhere classified, lumbar region, subsequent encounter for fracture with routine healing

== ENCOUNTER 2023-09-30 08:29 | Outpatient (CLI) | payer MEDICARE, OTHER ==
--- NOTE | 2023-09-30 14:06 | DEXA Report ---
PROCEDURE: Dexa Spine and/or Hip INDICATIONS: OSTEOPENIA TECHNIQUE: Dual energy x-ray absorptiometry (DXA) was performed on a [employer] System. Regions measur ed are the AP Spine, femoral neck, and if needed forearm. COMPARISON: DEXA, 11/25/2019 FINDINGS: Lumbar Spine: Bone Mineral Density: 1.110 g/cm/cm,T score: -0.6. Left Femoral Neck: Bone Mineral Density: 0.875 g/cm/cm, T score: -1.2 Left Hip: Bone Mineral Density: 0.872 g/cm/cm,T score: -1.1. Compared with the last exam, the patient's bone density lumbar spine is unchanged. Her bone density i n left hip is decreased by 2.6%, which is, however, not statistically significant. (T score greater or equal to -1.0: NORMAL) (T score from -1.1 to -2.4: OSTEOPENIA) (T score less than or equal to -2.5 to: OSTEOPOROSIS) Impression: 1. By WHO criteria, this patient has low bone density (osteopenia). 2. No statistical interval change in bone mineral density of the lumbar spine. No statistical interva l change in bone mineral density of the hip. Patients with diagnosis of osteoporosis or osteopenia should have regular bone mineral density assess ment. For those eligible for Medicare, routine testing is allowed once every 2 years. Testing frequ ency can be increased for patients who have rapidly progressing disease or for those who are receivin g medical therapy to restore bone ma2. Reviewed by: Chandu Castro MD on 09/30/2023 2:04 PM PDT Approved by: Chandu Castro MD on 09/30/2023 2:04 PM PDT Station ID: [id number]
== END 2023-09-30 08:30 | disposition home or self-care (01) ==
LOC: DI 08:29
PROVIDERS: ATTEND Registered Nurse
DX: M85.89 Other specified disorders of bone density and structure, multiple sites (principal)

== ENCOUNTER 2023-11-22 15:51 | Outpatient (CLI) | payer MEDICARE, OTHER ==
--- NOTE | 2023-11-22 16:32 | Sleep Patient Instructions ---
Sleep Center Visit Summary - Patient Visit Information Reason for Visit: Initial consult for evaluation of sleep disordered breathing and other sleep issues. - Patient Instructions Additional Instructions: You will be completing a sleep study, either an in-lab polysomnography (PSG) or home sleep study (HST). You will follow-up in the sleep care office after the sleep study is completed to hear the results and talk about therapy, if needed. You will be called by our office staff to schedule this appointment, but you may contact us with any questions. - Clinic Information Contact: [facility] [address] [place] [id number] [email or web address] T: [phone]
--- NOTE | 2023-11-22 16:38 | SLEEP CARE CONSULTATION ---
Information from patient questionnaire entered by Brittany Patino. I have reviewed and concur with the information entered by Brittany Patino. This document represents the service I personally performed and the decisions made by me, Zoraida Berg ARNP. History of Present Illness Service Date and Time: 11/22/2023 1551 Reason for Visit: New patient, Previously diagnosed sleep apnea Chief Complaint: reports: Fatigue, Frequent awakenings at night, Other (HEADACHES LEG CRAMPS) Date of Onset: APR 2023 Usual bedtime: 4773-7861 Time it takes to fall asleep: 20MINS Snores at night: Yes Observed to quit breathing while asleep: Yes Sleeps alone due to snoring: Yes Number of times waking at night: 3-4 Reasons for waking at night: reports: Snoring (only if sleeping in chair), Pain, Bathroom, Other (HEADACHES BODY ACHES). denies: Choking, Gasping for air Toss, Turn, or Twitch while sleeping: Yes Recalls having dreams: Yes (sometimes) Usually gets out of bed at: 8566-8691 (now 4-5 AM) Feels refreshed in the morning: Yes (sometimes) Morning headache: Yes (4-5 days a week; 6-12HRS OR 0.5HR AFTER ADVIL) Sleepy or fatigued during the day: Yes Ever fallen asleep while driving: No Takes day naps: Yes (1-2 times a week; 30 mins long) Prior sleep studies: Yes Year and Where: [facility] 35YRS AGO Additional HPI information: I had the pleasure of seeing BEV FERRIS today regarding the possibility of her having a sleep disorder. Her current complaints are fatigue, frequent night awakenings, insomnia, headaches and leg cramps. She says that 35 years ago she was diagnosed with sleep apnea and they did sinus and throat surgery which reduced all her symptoms. She had Afib in August 2023 and underwent an ablation that was successful. Her corrections identification technician referred her for a study. Last Apr- she started having trouble with sleeping only 3-4 hours and headaches. She is a restless sleeper because of pain. She is getting up a lot at night. In the last month, she is able to sleep for longer periods of time. She is a loud snorer according to her . - Parasomnia Symptoms Ever been unable to move upon waking from sleep: No Walks in sleep: No Talks in sleep: Yes Ever acted out dreams in sleep: No Ever felt weak in the knees when startled or emotional: No Bothered by creepy, crawly, restless sensations in legs: No Problems with memory or concentration: No Subjective Initial [place] Sleepiness Scale score: 11 (10/02/23) Past Medical History Past Medical History: reports: Hypertension, Arrythmia (Afib with ablation), Other (SCIATTICA PMR) Social History The patient's occupation is a RE. Patient is and lives in [place]. Have you smoked in the past 12 months: No Cigarettes per day (20/pack): 20 Years of smokin Quit date: 2019 Smoking Pack Years: 36.0 Alcohol use: No Caffeine use: Yes Caffeine amount and frequency: 2-3 CUPS EVERY MORNING Family History Family history of sleep disordered breathing: Yes Family Hx Sleep Apnea: Grandparent: Snoring Allergies and Home Medications Known drug allergies: Yes ( LISTED) Drug allergies reviewed: Yes Home medication list reviewed: Yes (as listed in EMR) Allergy and home medication list: Allergies codeine Adverse Reaction (Verified 11/20/23 12:36) Emesis Opioids-Meperidine and Related Adverse Reaction (Verified 11/20/23 12:36) Emesis Review of Systems Weight gain over past 5 years: 9 Weight loss over past 5 years: 9 Cardiovascular: reports: high blood pressure, chest pain, irregular heart rate or pulse, have to sleep sitting up Neurological: reports: headaches Psychiatric: reports: anxiety, claustrophobia Ear/Nose/Throat: reports: nasal congestion, tonsillectomy, wisdom teeth removed Endocrine: reports: sluggishness, too hot or cold Musculoskeletal: reports: joint pain, neck pain, back pain, muscle pain or cramping, mobility problems Immunologic: reports: sneezing, rash, allergies to food or environment Physical Exam Vital signs obtained and entered by: BRITTANY Salgado MA Blood Pressure: 148/90 (LEFT ARM) Cuff size: long Heart Rate: 84 O2 Saturation: 97 Height: 5 ft 9 in Weight: 229 lb 3.2 oz Body Mass Index: 33.8 BMI Classification: Obese Neck circumference: 17.25 Mouth and throat: narrow oropharynx Soft palate: long Hard palate: normal Uvula visualization: 50% Mallampati Class II Tongue: enlarged in size with teeth vallecillo on lateral edges Tonsils: absent bilaterally Neck: normal w/o lymphadenopathy or thyromegaly Heart: regular rate and rhythm Lungs: clear bilaterally Impression and Plan 1. Suspected Obstructive Sleep Apnea-Hypopnea Syndrome, as previously diagnosed and as suggested by a history of loud and irregular snoring, morning headache, frequent awakening during the night, unrefreshed sleep, and excessive daytime sleepiness. Narrow oropharynx and obesity are common predisposing factors for obstructive sleep apnea-hypopnea syndrome. I recommend proceeding to polysomnography to confirm the diagnosis and to assess severity. If the patient has significant sleep disordered breathing, a manual CPAP titration study will also be performed to find the optimal treatment pressure. I informed the patient of what the sleep studies involve and after some discussion, obtained agreement to proceed. The pathophysiology of obstructive sleep apnea-hypopnea syndrome was discussed with the patient and health risks of cardiovascular and cere brovascular disease if not treated. 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 Patient agreed to plan. * Schedule polysomnography. * Avoid long distance driving or driving when feeling sleepy. * Avoid alcohol, sedative and muscle relaxant around bedtime. * Attempt to lose weight. * Review instructions provided by trained office staff on how to prepare for the sleep study. * Return for follow-up after sleep study completed. Counseling Topics: Weight loss health impact Plan: PSG and followup Visit Type: In Office Time Spent with Patient (minutes): 33 Provider Statement: I spent 100% of the Face to Face Visit with the patient with greater than 50% spent counseling the patient and coordination of care.
[2023-11-22 16:41] VITALS: BP 148/90; O2SAT 97
== END 2023-11-22 15:52 | disposition home or self-care (01) ==
LOC: SC 15:51
PROVIDERS: ATTEND Nurse Practitioner Family
DX: G47.33 Obstructive sleep apnea (adult) (pediatric) (principal); E66.9 Obesity, unspecified; Z68.33 Body mass index [BMI] 33.0-33.9, adult; Z87.891 Personal history of nicotine dependence
CPT/HCPCS: 99203; G0463; 99212

== ENCOUNTER 2023-11-22 20:34 | Outpatient (CLI) | payer MEDICARE, OTHER | END 2023-11-22 20:35 | disposition home or self-care (01) | LOC: SC 20:34 | PROVIDERS: ATTEND Nurse Practitioner Family | DX: G47.33 Obstructive sleep apnea (adult) (pediatric) (principal); E66.9 Obesity, unspecified; Z68.33 Body mass index [BMI] 33.0-33.9, adult | CPT/HCPCS: 95810; 99203; G0463; 99212 ==

== ENCOUNTER 2023-12-13 16:00 | Outpatient (CLI) | payer MEDICARE, OTHER ==
--- NOTE | 2023-12-13 15:47 | SLEEP CARE CONSULTATION ---
Information from patient questionnaire entered by Mya Patino. I have reviewed and concur with the information entered by Mya Patino. This document represents the service I personally performed and the decisions made by , Zoraida Berg ARNP. History of Present Illness Service Date and Time: 12/13/2023 1540 Initial [place] Sleepiness Scale score: 11 (10/02/23) Current [place] Sleepiness Scale score: 6 (12/13/23) Additional HPI information: BEV FERRIS returns via telephone appointment for follow up and results of the recently performed polysomnography. The sleep study showed mild obstructive sleep apnea with an average AHI of 10.7 and cuco oxygen saturation of 75%. I explained the pathophysiology behind obstructive sleep apnea. We then spent quite a bit of time discussing different treatment options. For mild obs tructive sleep apnea, surgery and oral appliance are alternatives to nasal CPAP therapy but in moderate or severe cases, nasal CPAP is the most effective and reliable treatment. I reviewed the impact of weight changes on sleep apnea and strongly recommended losing weight. After some discussion, the patient opted to go with the nasal CPAP therapy. Nasal autoCPAP set at 4-15 cmH20 will be ordered with rationale explained. A manual titration study will be ordered if unable to find optimal pressure with office adjustments. I explained how CPAP machine works and what to expect when using the machine. Using CPAP every night in order to get used to it was emphasized. Patient advised to put CPAP mask on before getting into bed so as not to fall asleep without CPAP. To assist acclimation to CPAP use, it could also be used for a short time during day while reading or watching TV. The patient was instructed to call the CPAP supplier to discuss any mechanical problem that may occur. If the mask given is uncomfortable or is difficult to keep on through the night even with adjustment, contact the CPAP supplier as many will replace with another mask style if notified before 30 days. If snoring or perceives is not getting enough air or too much air from the machine, notify this office. Patient does not drink alcohol. Patient was cautioned about risks of drowsy driving until sleepiness symptoms resolve. Patient denies drowsy driving. Sleep Study - Results Type of Sleep Study: Polysomnography (COMPLETED 11/22/23) Prior sleep studies: Yes Year and Where: [facility] 35YRS AGO Polysomnography/Home Sleep Study results: IMPRESSION: The quality of the study is good. The patient had reduced sleep efficiency due to two prolonged awakenings during the night. The sleep architecture was abnormal for sleep fragmentation and reduced amount of time spent in slow wave sleep (N3). Respiratory monitoring showed mild obstructive sleep apnea-hypopnea (AHI = 10.7) associated with frequent arousals, oxyhemoglobin desaturation and moderate hypoxia (cuco oxygen saturation of 75%). Baseline oxygen saturation was normal. The patient did not sleep supine during this study (supine AHI = 0.0; non-supine = 10.72). Snore was light to moderate in intensity. There was no significant periodic leg movement of sleep. Cardiac rhythm was normal sinus rhythm without significant arrhythmia. No abnormal behavior (parasomnia) observed during the night. Allergies and Home Medications Known drug allergies: Yes (as listed) Drug allergies reviewed: Yes Home medication list reviewed: Yes (no changes) Allergy and home medication list: Allergies codeine Adverse Reaction (Verified 11/22/23 15:51) Emesis Opioids-Meperidine and Related Adverse Reaction (Verified 11/22/23 15:51) Emesis Review of Systems Review of systems same as previous: Yes (no changes) Physical Exam Vital signs obtained and entered by: MYA Salgado MA Height: 5 ft 10 in (PER PT) Weight: 220 lb (PER PT) Body Mass Index: 31.5 BMI Classification: Obese Impression and Plan 1. Obstructive Sleep Apnea-Hypopnea Syndrome, mild, with lowest oxygen s aturation of 75%. Obviously this is the cause of the patients symptoms of unrefreshed sleep, and excessive daytime sleepiness. Positive pressure therapy could benefit hypertension and arrhythmia. As mentioned above, the patient will be started on nasal autoCPAP therapy with pressure set at 4-15 cmH2O. A manual titration study will be completed if unable to find optimal treatment pressure with office adjustments. Compliance guidelines also reviewed. A copy of compliance guidelines will be given for reference at check out. 2. Hypoxemia, moderate, with a cuco oxygen saturation of 75% and 57 minutes spent under 90%. The baseline oxygen saturation was normal with an average oxygen saturation of 91%. 3. Obesity, unspecified. Currently patients BMI is 31.5. Obesity increases the risk of apnea, CPAP pressure requirements and overall health risks especially cardiovascular and diabetes. Thus patient is advised to lose weight. * Nasal auto CPAP therapy, pressure at 4-15 cm H2O. * Attempt to lose weight. * Avoid alcohol consumption near bedtime. * Avoid supine sleep until using CPAP. * The patient is again cautioned about driving until sleepiness completely resol ves. * Return one month after CPAP obtained. I will assess response to therapy and compliance at that time. Counseling Topics: Weight loss health impact Prescriptions: Auto CPAP Visit Type: Telehealth Video Video Type: Doximity Patient Location: Home Location of Provider: Office Patient agrees and consents to this telehealth visit type: Yes Time Spent with Patient (minutes): 21 Provider Statement: I spent 100% of the Telehealth Video Call with the patient with greater than 50% spent counseling the patient and coordination of care.
== END 2023-12-13 16:01 | disposition home or self-care (01) ==
LOC: SC 16:00
PROVIDERS: ATTEND Nurse Practitioner Family
DX: G47.33 Obstructive sleep apnea (adult) (pediatric) (principal); R09.02 Hypoxemia; E66.9 Obesity, unspecified; Z68.31 Body mass index [BMI] 31.0-31.9, adult
CPT/HCPCS: 99442

== ENCOUNTER 2024-03-17 08:29 | Outpatient (CLI) | payer MEDICARE, OTHER ==
[2024-03-17 09:00] LABS: CREATININE 0.7 mg/dL (0.6-1.3)
[2024-03-17] MEDS: DIATRIZOATE MEGLU/DIATRIZO SOD 30 ML BOTTLE PO ONE (11:29)
[2024-03-17] MEDS: iohexoL-300 100 ML VIAL IVP ONE (11:30)
--- NOTE | 2024-03-17 16:01 | CT Report ---
PROCEDURE: Abdomen/Pelvis W INDICATIONS: HIST OF OVARIAN CA, ABD PAIN CONTRAST: Omni 300 100ml TECHNIQUE: After the administration of intravenous contrast, a CT scan of the abdomen and pelvis was performed. Images were recorded and evaluated at appropriate window settings. Reformats: coronal and sagittal. F or radiation dose reduction, the following was used: automated exposure control, adjustment of mA and /or kV according to patient size. COMPARISON: 01/07/2020 FINDINGS: Image quality: Diagnostic. 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 Liver: No solid mass. Fluid attenuating cyst in segment 3 is slightly increased in size, measuring 1. 7 cm, previously 1.5 cm; no rim enhancement to suggest metastasis. Gallbladder: Gallbladder sludge versus small stones. No wall thickening. Biliary tree: No intrahepatic or extrahepatic dilation, accounting for age. Spleen: No splenomegaly. Pancreas: No pancreatic ductal dilation. Adrenals: No adrenal nodule. Kidneys and ureters: No hydronephrosis. No renal cystic lesion which requires follow up. No solid mas s. Stomach, bowel and peritoneum: No gastric or small bowel dilation. No abnormal wall thickening. No pa thologic free fluid. Diverticulosis without evidence of diverticulitis. Lymph nodes: No central or retroperitoneal adenopathy. Vessels: No infrarenal aortic aneurysm. Patent portal vein. PELVIS Reproductive organs: Hysterectomy. Ovaries not visualized. Bladder: No abnormal wall thickening, accounting for underdistention. Pelvic lymph nodes: No pelvic adenopathy by size criteria. Bones: No aggressive osseous abnormality. Degenerative changes of the spine. Chronic compression defo rmity of the L1 vertebral body versus prominent Schmorl's node. Opposing endplate sclerosis at L2-3 d ue to degenerative change. Other: Widemouth ventral hernia containing a short segment of nonobstructed small bowel. IMPRESSION: Colonic diverticulosis without evidence of diverticulitis. [place]outh lower ventral hernia containing a short segment of nonobstructed small bowel. Hysterectomy and bilateral salpingo-oophorectomy. No measurable disease. Reviewed by: Vasyl Masters MD on 03/17/2024 4:00 PM PDT Approved by: Vasyl Masters MD on 03/17/2024 4:00 PM PDT Station ID: [id number]
== END 2024-03-17 08:30 | disposition home or self-care (01) ==
LOC: LAB 08:29
PROVIDERS: ATTEND Obstetrics & Gynecology
DX: R10.9 Unspecified abdominal pain (principal); Z85.43 Personal history of malignant neoplasm of ovary; K57.30 Diverticulosis of large intestine without perforation or abscess without bleeding; K43.9 Ventral hernia without obstruction or gangrene; Z90.710 Acquired absence of both cervix and uterus; Z90.79 Acquired absence of other genital organ(s); Z90.722 Acquired absence of ovaries, bilateral
CPT/HCPCS: 36415; 82565; 84520

== ENCOUNTER 2024-03-18 10:40 | Outpatient (CLI) | payer MEDICARE, OTHER ==
--- NOTE | 2024-03-20 07:56 | Mammography Report ---
BILATERAL DIGITAL SCREENING MAMMOGRAM 3D/2D: 03/18/2024 CLINICAL: Routine screening. Comparison is made to exams dated: 06/20/2022 mammogram, 04/14/2021 mammogram, 07/31/2019 mammogram, mammogram, 10/04/2015 mammogram - [facility], and 01/05/2014 mammogram - [facility]. There are scattered areas of fibroglandular density in both breasts (category b / 25%-50% glandular t issue). No significant masses, calcifications, or other findings are seen in either breast. There has been no significant interval change. IMPRESSION: NEGATIVE There is no mammographic evidence of malignancy. A 1 year screening mammogram is recommended. Based on the Tyrer Cuzick model (a risk assessment model) the patient's lifetime risk is 5.5% and her 10 year risk is 4.5%. According to the ACR, ACS, and NCCN guidelines, an annual breast MRI exam cecile g with mammogram is recommended if the patient's lifetime risk is 20% or greater. This exam was interpreted at Station ID: [id number]. NOTE: For mammograms, a report in lay terms will be sent to the patient. Approximately 15% of breast malignancies will not be visualized mammographically. In the management of a palpable breast mass, a negative mammogram must not discourage biopsy of a clinically suspicious lesion. Electronically Signed By: Opal Olguin M.D., Ph.D. eb/nasir:03/20/2024 01:05:54 letter sent: No_Letter ACR BI-RADS Category 1: Negative 3341F PARENCHYMAL PATTERN: (A) - The breast(s) demonstrate(s) scattered fibroglandular densities. BI-RADS CATEGORY: (1) - 1 RECOMMENDATION: (ANNUAL) - Recommend routine annual screening mammography. [id number] 1 year screening LATERALITY: (B)
== END 2024-03-18 10:41 | disposition home or self-care (01) ==
LOC: DI.S 10:40
PROVIDERS: ATTEND Registered Nurse
DX: Z12.31 Encounter for screening mammogram for malignant neoplasm of breast (principal); R92.323 Mammographic fibroglandular density, bilateral breasts

== ENCOUNTER 2024-03-20 10:59 | Outpatient (CLI) | payer MEDICARE, OTHER ==
--- NOTE | 2024-03-20 11:31 | Sleep Patient Instructions ---
Sleep Center Visit Summary - Patient Visit Information Reason for Visit: First compliance with PAP therapy - Patient Instructions Additional Instructions: You were here for follow up of CPAP therapy. You will be continued on CPAP therapy with pressure at 5-10 cmH2O. Please let us know if the pressure change is uncomfortable and we can make further adjustments of the pressure. You should follow up with sleep care in 3 months. You may contact us sooner for any questions or concerns. - Clinic Information Contact: [facility] [address] [place] [id number] [email or web address] T: [phone]
--- NOTE | 2024-03-20 11:34 | SLEEP CARE CONSULTATION ---
Information from patient questionnaire entered by Tico Cardoza. I have reviewed and concur with the information entered by Tico Cardoza. This document represents the service I personally performed and the decisions made by , Zoraida Berg ARNP. History of Present Illness Service Date and Time: 03/20/2024 1059 Previous diagnosis: Mild, Obstructive Sleep Apnea-Hypopnea Syndrome AHI: 10.7 Reason for follow up: first compliance (Set up 12/25) Equipment type: CPAP (Airsense 11, s/u 12/2023) Equipment obtained from: [employer] (not yet getting supplies) Mask style: Nasal (over the nose) Mask brand: Resmed (AirFit [id number]) Backup mask available: No (will keep old mask when replaced) Prior sleep studies: Yes Year and Where: [facility] 35YRS AGO, 11/22/23 [facility] Type of Sleep Study: Polysomnography (COMPLETED 11/22/23) HPI additional information: BEV FERRIS was diagnosed to have mild, AHI 10.7, obstructive sleep apnea- hypopnea syndrome and returned today for CPAP therapy first compliance follow- up. Sleep Study - Results Type of Sleep Study: Polysomnography (COMPLETED 11/22/23) Prior sleep studies: Yes Year and Where: [facility] 35YRS AGO CPAP Compliance Data - Data Reviewed with Patient Average duration of nightly device use: 4 h 32 mins Compliance rate %: 70 (30/30 days used) Current pressure setting (cmH2O): 4 - 15 (median 7.7, avg 11.1, max 11.6) Average residual AHI: 1.2 Central apnea: 0.1 Obstructive apnea: 0.2 Hypopnea: 0.7 Average large leak: 8 L/min Compliance data discussion: In the last 30 days her compliance is at 67%. Her hours of use is at 5 hours 12 minutes. Her residual AHI is 1.0. Her average pressure is at 10.3 and her average large leak 14.4 L/min. Subjective Missed days of use due to: reports: other (Mist in mask now) Patient concerns: reports: mask discomfort, air blowing in eyes, mask leak noise. denies: aerophagia, condensation in mask/hose, nasal congestion, dry mouth, nose, throat, epistaxis Observed to snore while using device: No Current pressure setting perceived as: comfortable On therapy, patient: reports: sleeping better, awakening more refreshed, being more awake and alert during the day, more rested overall, other (still takes a nap at 3-4 pm daily). denies: drowsiness while driving Initial Hernandez Sleepiness Scale score: 11 (10/02/23) Current Hernandez Sleepiness Scale score: 6 (03/20/24) Allergies and Home Medications Known drug allergies: Yes (as listed) Drug allergies reviewed: Yes Home medication list reviewed: Yes (Eliquis) Allergy and home medication list: Allergies codeine Adverse Reaction (Verified 03/20/24 11:10) [facility] Opioids-Meperidine and Related Adverse Reaction (Verified 03/20/24 11:10) [facility] Home Medications Eliquis See Rx Instructions .ROUTE .COMPLEX 03/20/24 [History] Review of Systems Review of systems same as previous: Yes (no changes) Physical Exam Vital signs obtained and entered by: Zoraida Thorne NP Blood Pressure: 152/85 Cuff size: long (left arm) Heart Rate: 73 O2 Saturation: 99 Height: 5 ft 10 in (PER PT) Weight: 233 lb 3.2 oz Body Mass Index: 33.4 BMI Classification: Obese Impression and Plan 1. Obstructive Sleep Apnea-Hypopnea Syndrome, mild, with good treatment compliance and good apnea control. On CPAP therapy, the patient has better sleep quality and is more rested overall. She has significant improvement in her sleep apnea and is getting comfortable with CPAP therapy. She has been getting some leaks around the mask and mask leak noise with a little condensation but is waiting for more cushion so that she can change it out. The patients pressure will be changed to autoCPAP 5-10 cmH20 to reflect pressure being used. Patient advised to contact me if pressure change is uncomfortable so that it can be adjusted. Goals for apnea control discussed. Patient's apnea severity and rationale for treatment to reduce apnea, improve sleep quality and reduce cardiovascular and cerebrovascular events was reviewed. I also reviewed the benefit of consistent device use of CPAP for hypertension, arrhythmia. 2. Obesity, unspecified. Currently patients BMI is 33.4. Obesity increases the risk of apnea, CPAP pressure requirements and overall health risks especially cardiovascular and diabetes. Thus patient is advised to lose weight. * Change auto CPAP pressure to 5-10 cmH2O * Notify me if snoring with mask or feeling that the pressure is too much or too little * Attempt to lose weight * Call this office if any problems using CPAP * Return for follow up in 3 months, or sooner if concerns arise Adjust device pressure to (cmH2O): 5-10 Counseling Topics: Spare mask, Weight loss health impact Follow up with Sleep Care in: 3 months Visit Type: In Office Time Spent with Patient (minutes): 31 Provider Statement: I spent 100% of the Face to Face Visit with the patient with greater than 50% spent counseling the patient and coordination of care.
[2024-03-20 11:43] VITALS: BP 152/85; O2SAT 99
== END 2024-03-20 11:00 | disposition home or self-care (01) ==
LOC: SC 10:59
PROVIDERS: ATTEND Nurse Practitioner Family
DX: G47.33 Obstructive sleep apnea (adult) (pediatric) (principal); E66.9 Obesity, unspecified; Z68.33 Body mass index [BMI] 33.0-33.9, adult
CPT/HCPCS: 99213; G0463; 99212